=== PATIENT | male | born 1945 | race Caucasian/White ===

== ENCOUNTER → 2017-04-18 | Outpatient (CLI) | payer BC ==
[~2017-04-18] MED LIST: ALLO100T PO; ASPCH81X PO; BNC5 PO; CHOL1CAP57 PO; LEVO50TA6 PO; MULT-506 PO; POTA1TAB97 PO; ZNTT/150 PO; [UNRECOGNIZED DRUG - CODE] OPR
[2017-04-18 13:34] LABS: BASO % 0.7 %; BASO ABS # 0.03 K/uL (0-0.2); COMPLETE YES; HEMATOCRIT 41.3 % (42-52); LYMPH % 41.5 %; LYMPH ABS # 1.68 K/uL (1.2-3.4); MEAN CELL VOLUME 92.6 fL (80-100); MEAN CORPUSCULAR HEMOGLOBIN 31.6 pg (25-34); MEAN CORPUSCULAR HGB CONC 34.1 g/dl (32-36); MEAN PLATELET VOLUME 11.5 fL (7.4-10.4); MONO % 10.9 %; NEUT % 44.9 %; PLATELET COUNT 212 K/uL (130-400); RED BLOOD COUNT 4.46 M/uL (4.7-6.1); WHITE BLOOD COUNT 4.05 K/uL (4.8-10.8)
[2017-04-18 13:57] LABS: ESTIMATED AVERAGE GLUCOSE 105 mg/dl; HA1C FLAG Normal (Normal)
[2017-04-18 14:36] LABS: ALT/SGPT 32 U/L (12-78); AST/SGOT 24 U/L (15-37); BLOOD UREA NITROGEN 18 mg/dl (7-18); BUN/CREATININE RATIO 14.7 (10-20); CALCIUM 9.1 mg/dl (8.5-10.1); CARBON DIOXIDE 25 mmol/L (21-32); CHLORIDE 110 mmol/L (98-107); GLUCOSE 97 mg/dl (70-99); POTASSIUM 4.5 mmol/L (3.5-5.1); SODIUM 143 mmol/L (136-145); URIC ACID 3.8 mg/dl (2.6-7.2)
[2017-04-18 14:45] LABS: ALB/GLOB RATIO 1.2 (0.9-2); ALKALINE PHOSPHATASE 47 U/L (45-117); CHOLESTEROL 187 mg/dl (0-200); CHOLESTEROL/HDL RATIO 5.3; HDL CHOLESTEROL 35 mg/dl; LDL CHOLESTEROL CALCULATED 101 mg/dl; PHOSPHORUS 2.5 mg/dl (2.5-4.9); TRIGLYCERIDES 254 mg/dl (0-150); VERY LOW DENSITY LIPOPROT CALC 51 mg/dl
[2017-04-20 10:05] LABS: C-REACTIVE PROT HIGHSEN 0.7 MG/L
--- NOTE | 2017-04-22 10:35 | CODING QUERY MEDICAL NECESSITY ---
SUPPORTING DIAGNOSIS NEEDED Dr. Dexter, A supporting diagnosis is required for the test/procedure performed on this patient in order for us to be reimbursed by the patient's insurance. Please provide a supporting diagnosis for the following test/procedure listed below next to the test name along with your signature. *If there is no additional diagnosis for this patient that would support the following test/procedure please document that below next to the test/procedure. Test(s)/Procedure(s) that require a supporting diagnosis: * ([id number]) C-REACTIVE PROTEIN DIAGNOSIS: DATE OF SERVICE: 04/18/17 Provider Signature: Date: Thank you Abner Etienne [facility] Information Management Once completed, please kindly fax back to [phone] For questions please call [phone]
== END | disposition home or self-care (01) ==
LOC: C.LABBC 09:38
PROVIDERS: ATTEND Urology
DX: R73.09 Other abnormal glucose (principal); E55.9 Vitamin D deficiency, unspecified; D51.9 Vitamin B12 deficiency anemia, unspecified; R97.20 Elevated prostate specific antigen [PSA]; R53.83 Other fatigue

== ENCOUNTER → 2017-09-06 | Outpatient (CLI) | payer BC ==
[2017-09-06 11:01] LABS: BASO % 0.7 %; BASO ABS # 0.03 K/uL (0-0.2); COMPLETE YES; EOS % 2.1 %; HEMATOCRIT 41.2 % (42-52); LYMPH % 44.4 %; MEAN CELL VOLUME 91.6 fL (80-100); MEAN CORPUSCULAR HEMOGLOBIN 31.6 pg (25-34); MEAN CORPUSCULAR HGB CONC 34.5 g/dl (32-36); MEAN PLATELET VOLUME 11.5 fL (7.4-10.4); MONO % 9.6 %; NEUT % 43.2 %; PLATELET COUNT 224 K/uL (130-400); WHITE BLOOD COUNT 4.28 K/uL (4.8-10.8)
[2017-09-06 11:18] LABS: ESTIMATED AVERAGE GLUCOSE 111 mg/dl; HA1C FLAG Normal (Normal)
[2017-09-06 11:19] LABS: ALT/SGPT 30 U/L (12-78); BLOOD UREA NITROGEN 20 mg/dl (7-18); BUN/CREATININE RATIO 14.1 (10-20); CARBON DIOXIDE 25 mmol/L (21-32); CHLORIDE 109 mmol/L (98-107); CHOLESTEROL 191 mg/dl (0-200); GLUCOSE 101 mg/dl (70-99); POTASSIUM 4.5 mmol/L (3.5-5.1); SODIUM 139 mmol/L (136-145); URIC ACID 5.4 mg/dl (2.6-7.2)
[2017-09-06 11:27] LABS: ALB/GLOB RATIO 1.3 (0.9-2); ALKALINE PHOSPHATASE 44 U/L (45-117); AST/SGOT 27 U/L (15-37); CHOLESTEROL/HDL RATIO 5.3; HDL CHOLESTEROL 36 mg/dl; LDL CHOLESTEROL CALCULATED 105 mg/dl; PHOSPHORUS 2.2 mg/dl (2.5-4.9); TRIGLYCERIDES 249 mg/dl (0-150); VERY LOW DENSITY LIPOPROT CALC 50 mg/dl
== END | disposition home or self-care (01) ==
LOC: C.LABBC 08:06
PROVIDERS: ATTEND Family Medicine
DX: E11.9 Type 2 diabetes mellitus without complications (principal)

== ENCOUNTER → 2018-04-18 | Outpatient (CLI) | payer BC ==
[~2018-04-18] MED LIST changes: +RANI150T85 PO; -ZNTT/150 PO
[2018-04-18 11:09] LABS: BASO % 0.7 %; BASO ABS # 0.03 K/uL (0-0.2); EOS % 1.4 %; EOS ABS # 0.06 K/uL (0-0.5); HEMATOCRIT 41.1 % (42-52); HEMOGLOBIN 14.3 g/dL (14.0-18.0); LYMPH % 38.3 %; LYMPH ABS # 1.59 K/uL (1.2-3.4); MEAN CELL VOLUME 89.5 fL (80-100); MEAN CORPUSCULAR HEMOGLOBIN 31.2 pg (25-34); MEAN CORPUSCULAR HGB CONC 34.8 g/dl (32-36); MEAN PLATELET VOLUME 10.5 fL (7.4-10.4); MONO ABS # 0.33 K/uL (0.11-0.59); NEUT % 51.6 %; NEUT ABS # 2.14 K/uL (1.4-6.5); PLATELET COUNT 209 K/uL (130-400); RED CELL DISTRIBUTION WIDTH CV 12.8 % (11.5-14.5); RED CELL DISTRIBUTION WIDTH SD 41.3 fL (36.4-46.3); WHITE BLOOD COUNT 4.15 K/uL (4.8-10.8)
[2018-04-18 11:41] LABS: ALBUMIN 4.3 gm/dl (3.4-5.0); ALKALINE PHOSPHATASE 44 U/L (45-117); ALT/SGPT 31 U/L (12-78); AST/SGOT 27 U/L (15-37); BLOOD UREA NITROGEN 14 mg/dl (7-18); CALCIUM 9.3 mg/dl (8.5-10.1); CARBON DIOXIDE 27 mmol/L (21-32); CHOLESTEROL 205 mg/dl (0-200); CREATININE 1.34 mg/dl (0.60-1.40); GLUCOSE 102 mg/dl (70-99); LDL CHOLESTEROL CALCULATED 116 mg/dl; POTASSIUM 4.3 mmol/L (3.5-5.1); SODIUM 138 mmol/L (136-145); TOTAL PROTEIN 7.4 gm/dl (6.4-8.2); TRANSFERRIN 296 mg/dl (200-360); URIC ACID 4.5 mg/dl (2.6-7.2)
[2018-04-18 12:52] LABS: HEMOGLOBIN A1C 5.5 % (4.5-5.6)
== END | disposition home or self-care (01) ==
LOC: C.LABBC 07:55
PROVIDERS: ATTEND Family Medicine
DX: E88.81 Metabolic syndrome and other insulin resistance (principal); E55.9 Vitamin D deficiency, unspecified; D51.9 Vitamin B12 deficiency anemia, unspecified; E78.9 Disorder of lipoprotein metabolism, unspecified; R53.83 Other fatigue

== ENCOUNTER 2024-11-07 12:13 | Observation (INO) ==
--- NOTE | 2024-11-07 12:40 | Emergency Department Note ---
Impression & Plan Syncope and collapse ADMIT ED Provider Note HPI: History obtained from patient. The patient is a 78-year-old gentleman with history of recently diagnosed Parkinson disease, PTSD, hypertension, GERD, who presents the emergency department with a chief complaint of a syncopal event. Patient states that he was working out today with his link trainer maintenance worker and he was doing some upper body exercises and rowing, patient states he began to feel lightheaded which lasted for several minutes and then his link trainer maintenance worker assisted him to a bench in the gym. Patient states then he lost consciousness for short period of time and was lowered to the ground. Patient states he awoke with his trainers assisting him and then EMS was called. ROS: - Per HPI Differential Diagnosis: Vasovagal syncope, arrhythmia to include SVT, atrial fibrillation with RVR, ventricular tachycardia, ACS, dehydration/acute kidney injury, amongst other potential pathologies. *Outpatient medications and allergy history reviewed. PE: General: Alert HEENT: Normocephalic, trachea midline Eyes: Extraocular eye movement is intact, no scleral erythema Pulmonary: Clear to auscultation bilaterally, no wheezing Cardio: Regular rate and rhythm GI: Abdomen is soft to palpation : No suprapubic tenderness MSK: No evidence of trauma or malformation of the extremities, no edema Skin: No evidence of rash Neuro: Alert, no focal deficits Psychiatric: Cooperative INDEPENDENT INTERPRETATIONS: senior payroll administrator: (As interpreted by myself): - An order was placed for continuous cardiac monitoring - Patient was noted to be in sinus rhythm with a rate of 58 EKG: (As interpreted by myself): Rate: 57 Rhythm: Sinus bradycardia Intervals: Within normal limits ST changes: No ST elevation Time: 1219 Chest x-ray: (As interpreted by myself): No acute process Interventions provided in ED: -Meclizine, IV fluid bolus Medical Decision Making: IV was established and lab work obtained, patient was placed on ceramics instructor. Lab work shows no leukocytosis, hemoglobin is normal, platelet count is normal, CMP does not show any evidence of any critical findings, creatinine is noted to be slightly above baseline at 1.64. Patient was given IV fluids. Troponin is negative. EKG per my interpretation shows sinus bradycardia without any acute ischemic changes. X-ray imaging of the chest does not show any evidence of any acute disease. Patient did not hit his head, he states he was lowered to the ground by his link trainer maintenance worker. I do not feel that CT imaging of the head is indicated at this time. On my reassessment the patient states that he feels improved from previous but still does feel lightheaded, given this I do feel that he should be admitted for further management. Patient was in agreement to this plan. Case was discussed with the on-call hospitalist, Dr. Obregon, the patient was admitted in stable condition for further management of syncope and lightheadedness. Consultants/Discussions held with other healthcare providers: -Hospitalist, Dr. Obregon Disposition discussion held by myself with: -Patient Diagnosis: 1. Syncope, acute 2. Elevated creatinine, acute 3. Lightheaded sensation, acute Disposition: Admission Adrián Koch DO Emergency Medicine Past Med/Surg History Problem List (Updated 11/07/24 @ 18:21 by Adrián Koch DO) Acute kidney injury Syncope and collapse (Acute) BPH (benign prostatic hyperplasia) Parkinson disease Contact dermatitis Rheumatoid factor positive Acute COVID-19 Abdominal pain Diplopia Parkinsons disease Rhinitis Tremor Mild cognitive impairment of uncertain or unknown etiology Elevated PSA Left hip pain Recent shoulder injury Trochanteric bursitis of left hip Chest wall pain Posttraumatic stress disorder Hyperuricemia Tubular adenoma of colon Kidney stone GERD (gastroesophageal reflux disease) Hypothyroidism Tachycardia post covid Hyperlipidemia Fatigue Long COVID Dyspnea Abnormal CXR Hypertension (Chronic) Medical History Sinusitis History of actinic keratoses Hx of nephrolithotomy with removal of calculi COVID-19 Perforated appendicitis Mild anemia Gangrenous appendicitis Kidney stones Surgical History H/O cataract removal with insertion of prosthetic lens H/O hand surgery TRIGGER FINGER RELEASE ON R HAND History of appendectomy H/O sinus surgery Family History Father Stroke Myocardial infarction Sister Prediabetes Grandfather (Paternal) Myocardial infarction Brother Prostate cancer Denies family history of Ovarian cancer Breast cancer Colorectal cancer Social History Smoking Status: Never smoker Second Hand Exposure: No; Do You Dip or Chew Tobacco: No; Hx Alcohol Use: No Hx Substance Use: No Preferred Language: Persian Communication Ability: Effective Visual Impairment: Diminished Hearing Ability: Use of Hearing Aid Dural Mechanic Required: No Beliefs That Will Affect Care: None marital status: Current Living Situation: Spouse current occupational status: retired How many Children do You have: 2 Other Information That Helps Us Care for You: No Feels Safe at Home: Yes Safety Concerns: Feels Safe At This Time Childhood Exposure to Second-Hand Smoke: Yes Diet: regular caffeine: Yes during the past year weight has: remained stable Dental Care, Regularly: Yes Physical Activity Frequency: Does not Exercise Seatbelt Use: always Sunscreen Use: Yes Do you think of yourself as: straight/heterosexual Assistive Devices: None Allergies Allergies Allergy/AdvReac Type Severity Reaction Status Date / Time rosuvastatin AdvReac Severe Depression Verified 11/07/24 14:37 Home Meds Home Medications Medication Instructions Recorded Confirmed aspirin 81 mg tablet,delayed 81 mg PO DAILY 03/30/22 11/07/24 release (Ecotrin Low Strength) cholecalciferol (vitamin D3) 25 50 mcg PO BID 11/23/22 11/07/24 mcg (1,000 unit) capsule ezetimibe 10 mg tablet 10 mg PO DAILY 03/19/24 11/07/24 coQ10 (ubiquinol) 200 mg capsule 200 mg PO DAILY 11/07/24 11/07/24 Previous Rx's Medication Instructions Recorded olmesartan 5 mg tablet 5 mg PO 3XWK #60 tabs 05/26/23 levothyroxine 50 mcg tablet 50 mcg PO DAILY #90 tabs 05/23/24 famotidine 40 mg tablet 40 mg PO BID #180 tabs 06/19/24 allopurinol 100 mg tablet 100 mg PO BID #180 tabs 06/20/24 potassium citrate 10 mEq (1,080 20 meq (2 x 10 mEq (1,080 mg)) PO 08/31/24 mg) tablet,extended release BID 30 days #120 tabs Results & Data (ED) Vital Signs Vital Signs - 24 hr 11/07/24 12:20 11/07/24 12:21 11/07/24 12:30 Temperature 36.4 C L Temperature Source Oral Pulse Rate 64 68 Pulse Rate from SpO2 Sensor Respiratory Rate 18 17 Blood Pressure 113/66 Blood Pressure Mean 81 Pulse Oximetry 96 96 100 Oxygen Delivery Method Room Air Room Air Sepsis Recent Fever Within 48 Hours No Sepsis New/Unexplained Change in Mental Status No Sepsis Action Taken by Nursing No Action Required 11/07/24 12:32 11/07/24 12:54 11/07/24 13:08 Temperature Temperature Source Pulse Rate 70 73 Pulse Rate from SpO2 Sensor 75 Respiratory Rate 14 Blood Pressure 105/61 Blood Pressure Mean 67 Pulse Oximetry 95 Oxygen Delivery Method Sepsis Recent Fever Within 48 Hours Sepsis New/Unexplained Change in Mental Status Sepsis Action Taken by Nursing 11/07/24 13:08 11/07/24 13:18 11/07/24 13:30 Temperature Temperature Source Pulse Rate 81 Pulse Rate from SpO2 Sensor Respiratory Rate 12 Blood Pressure 105/61 113/68 Blood Pressure Mean 67 75 Pulse Oximetry Oxygen Delivery Method Sepsis Recent Fever Within 48 Hours Sepsis New/Unexplained Change in Mental Status Sepsis Action Taken by Nursing 11/07/24 13:30 11/07/24 13:30 11/07/24 13:57 Temperature Temperature Source Pulse Rate 48 L 71 Pulse Rate from SpO2 Sensor 49 L 67 Respiratory Rate 18 14 Blood Pressure 113/68 Blood Pressure Mean 75 Pulse Oximetry 95 92 Oxygen Delivery Method Sepsis Recent Fever Within 48 Hours Sepsis New/Unexplained Change in Mental Status Sepsis Action Taken by Nursing 11/07/24 14:00 11/07/24 14:03 11/07/24 14:24 Temperature Temperature Source Pulse Rate 56 L 65 Pulse Rate from SpO2 Sensor 56 L 66 Respiratory Rate 15 17 Blood Pressure 119/63 Blood Pressure Mean 93 Pulse Oximetry 95 93 Oxygen Delivery Method Sepsis Recent Fever Within 48 Hours Sepsis New/Unexplained Change in Mental Status Sepsis Action Taken by Nursing 11/07/24 14:30 11/07/24 14:36 Temperature Temperature Source Pulse Rate 67 Pulse Rate from SpO2 Sensor 68 Respiratory Rate 12 Blood Pressure 126/72 Blood Pressure Mean 95 Pulse Oximetry 91 Oxygen Delivery Method Sepsis Recent Fever Within 48 Hours Sepsis New/Unexplained Change in Mental Status Sepsis Action Taken by Nursing Laboratory Data 11/07/24 12:10 11/07/24 12:10 Lab Results 11/07/24 Range/Units 12:10 WBC 5.82 (4.8-10.8) K/ul RBC 4.64 L (4.70-6.10) M/uL Hgb 14.0 (14.0-18.0) g/dl Hct 40.3 L (42.0-52.0) % MCV 86.9 (80.0-100.0) fL MCH 30.2 (25.0-34.0) pg MCHC 34.7 (32.0-36.0) g/dL RDW Std Deviation 39.5 (36.4-46.3) fL RDW Coeff of Sasha 12.5 (11.5-14.5) % Plt Count 270 (130-400) K/uL MPV 10.5 (9.4-12.4) fL Immature Gran % (Auto) 0.3 % Neut % (Auto) 60.1 % Lymph % (Auto) 28.7 % [place] % (Auto) 9.3 % Eos % (Auto) 0.7 % Baso % (Auto) 0.9 % Neut # (Auto) 3.50 (1.40-6.50) K/uL Lymph # (Auto) 1.67 (1.20-3.40) K/uL [place] # (Auto) 0.54 (0.11-0.59) K/uL Eos # (Auto) 0.04 (0.00-0.50) K/uL Baso # (Auto) 0.05 (0.00-0.20) K/uL Immature Gran # (Auto) 0.02 (0.01-0.20) K/uL PT 10.7 (9.0-12.0) Seconds INR 1.0 (0.9-1.1) Sodium 138 (136-145) mmol/L Potassium 4.6 (3.5-5.1) mmol/L Chloride 104 (98-107) mmol/L Carbon Dioxide 22 (21-32) mmol/L Anion Gap 12 H (3-11) BUN 18 (6-23) mg/dl Creatinine 1.64 H (0.6-1.4) mg/dl Est Cr Clr Drug Dosing 37.0 ml/min eGFR 42.55 BUN/Creatinine Ratio 11.0 (10-20) Glucose 129 H (70-99(Fasting)) mg/dl Calcium 9.9 (8.6-10.3) mg/dl Total Bilirubin 0.9 (0.2-1.0) mg/dl AST 19 (13-39) U/L ALT 17 (7-52) U/L Alkaline Phosphatase 46 (34-104) U/L Troponin I High Sens 3.9 (0-20) pg/ml Total Protein 6.8 (6.0-8.3) gm/dl Albumin 4.2 (3.4-5.0) gm/dl Globulin 2.6 (2.5-4.0) gm/dl Albumin/Globulin Ratio 1.6 (0.9-2) Lipase 13 (11-82) U/L Administered Medications Ondansetron HCl (Ondansetron Inj 2 Mg/Ml 2 Ml Vial) 4 mg IV Q6H PRN PRN Reason: Nausea And Vomiting Stop: 12/07/24 15:29 Last Admin: 11/07/24 15:33 Dose: 4 mg Documented By: RAVI Discontinued Medications Sodium Chloride (Nss) 500 mls @ 999 mls/hr IV .Q31M ONE Stop: 11/07/24 13:02 Last Infusion: 11/07/24 16:09 Dose: Infused Documented By: Admin: 11/07/24 13:11 Dose: 999 mls/hr Documented By: RAVI Losartan Potassium (Losartan Potassium 25 Mg Tab) 12.5 mg PO MoWeFr [facility] Stop: 12/07/24 16:29 Last Admin: 11/07/24 17:03 Dose: Not Given Documented By: [facility] [place] Meclizine HCl (Meclizine Hcl 25 Mg Tab) 25 mg PO NOW [facility] Stop: 11/07/24 14:16 Last Admin: 11/07/24 14:47 Dose: 25 mg Documented By: RAVI Ondansetron HCl (Ondansetron Inj 2 Mg/Ml 2 Ml Vial) Confirm Administered Dose 4 mg .ROUTE .STK-MED ONE Stop: 11/07/24 15:25 Last Admin: 11/07/24 15:33 Dose: Not Given Documented By: RAVI Imaging Data Radiologist's Impression: Chest X-Ray 11/07/24 12:31 XR chest 1V portable CLINICAL HISTORY: Chest pain, nonspecific TECHNIQUE: Single frontal radiograph of the chest was obtained. Comparison: Comparison is made to chest radiograph 11/25/2021 FINDINGS: No lines and tubes are seen. The cardiomediastinal silhouette is normal. The lungs are clear. No evidence of pleural effusion or pneumothorax. IMPRESSION: No acute chest disease. ACT 112: Negative or not required by law. Electronically signed by: Jean Claude Orellana M.D. 11/07/2024 1:47 PM Discharge Plan Visit Data Chief Complaint: Vertigo Stated Complaint: DIZZY ED Provider: Adrián Koch Discharge Problem: Syncope and collapse Patient Disposition: Admitted As Inpatient Discharge Instructions Interventions: ED Discharge Assessment Last Done: 11/07/24 15:07
[2024-11-07] MEDS: SODIUM CHLORIDE 0.9% 500 ML IV ONE (13:11)
[2024-11-07 13:15] LABS: Basophils # (auto) 0.05 K/uL (0.00-0.20); Basophils % (auto) 0.9 %; Eosinophils # (auto) 0.04 K/uL (0.00-0.50); Eosinophils % (auto) 0.7 %; Hematocrit (blood only) 40.3 % (42.0-52.0); Immature Granulocytes # (auto) 0.02 K/uL (0.01-0.20); Immature Granulocytes % (auto) 0.3 %; Lymphocytes # (auto) 1.67 K/uL (1.20-3.40); Lymphocytes % (auto) 28.7 %; Mean Corpuscular Hemoglobin 30.2 pg (25.0-34.0); Mean Corpuscular Hgb Conc 34.7 g/dL (32.0-36.0); Mean Corpuscular Volume 86.9 fL (80.0-100.0); Mean Platelet Volume 10.5 fL (9.4-12.4); Monocytes # (auto) 0.54 K/uL (0.11-0.59); Monocytes % (auto) 9.3 %; Neutrophils % (auto) 60.1 %; Platelet Count 270 K/uL (130-400); RDW Coefficient of Variation 12.5 % (11.5-14.5); RDW Standard Deviation 39.5 fL (36.4-46.3); Red Blood Count 4.64 M/uL (4.70-6.10); White Blood Count 5.82 K/ul (4.8-10.8)
[2024-11-07 13:40] LABS: Albumin Globulin Ratio 1.6 (0.9-2); Albumin Level 4.2 gm/dl (3.4-5.0); Bilirubin,Total 0.9 mg/dl (0.2-1.0); Calcium 9.9 mg/dl (8.6-10.3); Globulin 2.6 gm/dl (2.5-4.0); Potassium 4.6 mmol/L (3.5-5.1); Total Protein 6.8 gm/dl (6.0-8.3)
[2024-11-07 13:44] LABS: Troponin I High Sensitivity 3.9 pg/ml (0-20)
[2024-11-07 13:48] LABS: Prothrombin Time 10.7 Seconds (9.0-12.0)
--- NOTE | 2024-11-07 13:48 | XRay Report ---
XR chest 1V portable CLINICAL HISTORY: Chest pain, nonspecific TECHNIQUE: Single frontal radiograph of the chest was obtained. Comparison: Comparison is made to chest radiograph 11/25/2021 FINDINGS: No lines and tubes are seen. The cardiomediastinal silhouette is normal. The lungs are clear. No evid ence of pleural effusion or pneumothorax. IMPRESSION: No acute chest disease. ACT 112: Negative or not required by law. Electronically signed by: Jean Claude Orellana M.D. 11/07/2024 1:47 PM
[2024-11-07] MEDS: MECLIZINE HCL 25 MG TAB PO STA ×2 (14:47→22:47)
--- NOTE | 2024-11-07 15:01 | History & Physical Report ---
Date of Service November 07, 2024 Assessment & Plan (1) Syncope and collapse: Plan: H/o of syncopal event while at the gym, lightheaded then syncope. Symptoms not present prior to, during, or after per patient; witnessed by agency trainer at the gym. Currently experiencing vertigo, onset while in ambulance en route to hospital. Reportedly deals w/ tachycardia but upon arrival, bradycardic. Anticipate 2/2 dehydration combined w/ vigorous exercise at gym - Admit - BP meds - olmesartan 5 mg 3 times per week - HOLD - Olmesartan may have impacted event, however, pt has been on this dose for years so not certain if this was the main culprit - CBC RBC 4.64, H&H 14/40.3; CMP AG 12, creatinine 1.64, glucose 129; troponin 3.9 - EKG Sinus bradycardia, 57bpm, AK 160, QRS 72, QT/QTc 410/399 - CXR no acute chest disease - Having pain w/ palpation C-spine; 2/2 recent fall and episode of ongoing vertigo - CT spine + head -CT cervical spine with degenerative changes, no acute bony injury; head CT no acute intracranial abnormality - Ongoing vertigo - Meclizine + zofran - Mg pending - TSH pending - Orthostatic vitals pending (2) Parkinson disease: Plan: H/o per report; Follows w/ [facility] for such; supposedly due to his exposure to agent orange while in [place]. - 1-on-1 fitness MWF for PD (3) Hypothyroidism: Plan: H/o hypothyroidism - Most recent TSH 10/2023 @ 4.197 - TSH pending - On levothyroxine- continue Plan GERD- famotidine Dispo: Admit Diet: Regular VTE Prophylaxis: Encourage ambulation as tolerated Code: Full Admission and Anticipated Discharge Date Admission Date: 11/07/2024 History of Present Illness Chief Complaint: Syncopal event Primary Care Provider: Jimmy Dexter MD 78-year-old male presenting via EMS from [facility] for episode of dizziness, followed by syncopal episode with associated vertigo and chest tightness. ED course: CBC RBC 4.64, H&H 14/40.3; PT/INR WNL; CMP AG 12, creatinine 1.64, glucose 129; troponin 3.9; lipase 13; CXR no acute chest disease; EKG sinus bradycardia (57 bpm).; Provided with 500 mL NSS, meclizine 25 in ED. 78-year-old male PMHx HTN, Parkinson's disease, hypothyroidism, GERD, and mild cognitive impairment presenting for syncopal episode. States that he participates in 1 on 1 exercises Tuesday, Tuesday, and Tuesday. Was at the gym participating in this regimen, states that he was exercising rather vigorously. Suddenly got lightheaded, and was told to sit down by the agency trainer. Patient states next thing he knew, he woke up on the floor with people looking at him from above. States that he does not believe he got any symptoms prior to the episode other than just feeling lightheaded. Was breathing heavy, but attributes this to exercising and did not per se have any shortness of breath or chest pain. States that he believes he hit his head on the way down, as his agency trainer stated. Having slight pain at the back of his neck. Patient states that he did not have involuntary movements per his agency trainer, and did not have confusion upon regaining consciousness. Believes he was only out for a few moments. States that this happened before approximately 11 years ago with the exact same episode of having lightheadedness while at the gym and then having a syncopal event. Patient states that he has not been drinking a lot of fluid recently, there is a chance that he was rather dehydrated. Takes olmesartan Tuesday, and has been on this regimen for years. Only other concern right now is the patient is having rather severe vertigo, which started while en route to the hospital via the ambulance. Has decreased in severity slightly since stationary, but having recurrence of symptoms when moving his head [id number]. States that the room is spinning, but he is not feeling off balance. Denies chest pain, shortness of breath, palpitations, abdominal pain, N/V/D/C, numbness or tingling, headache, or LUTS. Took all a.m. medications. Please see Dr. Obregon's attestation for adjustments/additions to treatment plan. Allergies Allergy/AdvReac Type Severity Reaction Status Date / Time rosuvastatin AdvReac Severe Depression Verified 11/07/24 14:37 Home Medications Medication Instructions Recorded Confirmed Type aspirin 81 mg tablet,delayed 81 mg PO DAILY 03/30/22 11/07/24 History release (Ecotrin Low Strength) cholecalciferol (vitamin D3) 25 50 mcg PO BID 11/23/22 11/07/24 History mcg (1,000 unit) capsule olmesartan 5 mg tablet 5 mg PO 3XWK #60 tabs 05/26/23 11/07/24 Rx ezetimibe 10 mg tablet 10 mg PO DAILY 03/19/24 11/07/24 History levothyroxine 50 mcg tablet 50 mcg PO DAILY #90 tabs 05/23/24 11/07/24 Rx famotidine 40 mg tablet 40 mg PO BID #180 tabs 06/19/24 11/07/24 Rx allopurinol 100 mg tablet 100 mg PO BID #180 tabs 06/20/24 11/07/24 Rx potassium citrate 10 mEq (1,080 20 meq (2 x 10 mEq (1,080 mg)) PO 08/31/24 11/07/24 Rx mg) tablet,extended release BID 30 days #120 tabs coQ10 (ubiquinol) 200 mg capsule 200 mg PO DAILY 11/07/24 11/07/24 History Past Med/Surg History Problem List (Updated 11/07/24 @ 18:21 by Adrián Koch DO) Acute kidney injury Syncope and collapse (Acute) BPH (benign prostatic hyperplasia) Parkinson disease Contact dermatitis Rheumatoid factor positive Acute COVID-19 Abdominal pain Diplopia Parkinsons disease Rhinitis Tremor Mild cognitive impairment of uncertain or unknown etiology Elevated PSA Left hip pain Recent shoulder injury Trochanteric bursitis of left hip Chest wall pain Posttraumatic stress disorder Hyperuricemia Tubular adenoma of colon Kidney stone GERD (gastroesophageal reflux disease) Hypothyroidism Tachycardia post covid Hyperlipidemia Fatigue Long COVID Dyspnea Abnormal CXR Hypertension (Chronic) Medical History Sinusitis History of actinic keratoses Hx of nephrolithotomy with removal of calculi COVID-19 Perforated appendicitis Mild anemia Gangrenous appendicitis Kidney stones Surgical History H/O cataract removal with insertion of prosthetic lens H/O hand surgery TRIGGER FINGER RELEASE ON R HAND History of appendectomy H/O sinus surgery Family History Father Stroke Myocardial infarction Sister Prediabetes Grandfather (Paternal) Myocardial infarction Brother Prostate cancer Denies family history of Ovarian cancer Breast cancer Colorectal cancer Social History Smoking Status: Never smoker Second Hand Exposure: No; Do You Dip or Chew Tobacco: No; Hx Alcohol Use: No Hx Substance Use: No Preferred Language: Urdu Communication Ability: Effective Visual Impairment: Diminished Hearing Ability: Use of Hearing Aid Grey Inspector Required: No Beliefs That Will Affect Care: None marital status: Current Living Situation: Spouse current occupational status: retired How many Children do You have: 2 Other Information That Helps Us Care for You: No Feels Safe at Home: Yes Safety Concerns: Feels Safe At This Time Childhood Exposure to Second-Hand Smoke: Yes Diet: regular caffeine: Yes during the past year weight has: remained stable Dental Care, Regularly: Yes Physical Activity Frequency: Does not Exercise Seatbelt Use: always Sunscreen Use: Yes Do you think of yourself as: straight/heterosexual Assistive Devices: None Review of Systems Review of Systems: All systems reviewed & are unremarkable except as noted in Subjective Physical Exam Physical Exam: General: No acute distress Skin: Warm and dry, without rashes or lesions Head: Normocephalic, atraumatic Eyes: PERRL, conjunctivae clear, sclera non-icteric; EOM intact, no nystagmus with EOMs ENT: External ear and ear canal without swelling, LIME, wears hearing aids; nose atraumatic; good dentition, tongue normal appearance, appearing slightly dry Neck: Supple, no LAD Cardio: Bradycardic, regular rhythm, no M/G/R, S1 and S2 normal Resp: No respiratory distress, Lungs CTA in all lobes bilaterally, no wheezes, rales, or rhonchi Abdomen: Soft, symmetric, nontender; no masses or hepatosplenomegaly; Bowel sounds normoactive MSK: No deformities, full ROM throughout; pulses palpable and equal; no edema. Neuro: Awake, alert; Muscle strength 5/5 bilaterally in UE/LE; Sensation intact bilaterally; CN intact Psych: Appropriate mood and affect Results & Data Results & Data Vital Signs (Past 12 Hours) Vital Signs Temp Pulse Resp BP Pulse Ox O2 Del Method 11/07/24 14:03 56 L 15 95 11/07/24 14:00 119/63 11/07/24 13:57 71 14 92 11/07/24 13:30 48 L 18 95 11/07/24 13:30 113/68 11/07/24 13:30 113/68 11/07/24 13:18 81 12 11/07/24 13:08 105/61 11/07/24 13:08 105/61 11/07/24 12:54 73 14 95 11/07/24 12:32 70 11/07/24 12:30 68 17 100 11/07/24 12:21 36.4 C L 64 18 113/66 96 Room Air 11/07/24 12:20 96 Room Air Laboratory Results 11/07/24 12:10 WBC 5.82 RBC 4.64 L Hgb 14.0 Hct 40.3 L MCV 86.9 MCH 30.2 MCHC 34.7 RDW Std Deviation 39.5 RDW Coeff of Sasha 12.5 Plt Count 270 MPV 10.5 Immature Gran % (Auto) 0.3 Neut % (Auto) 60.1 Lymph % (Auto) 28.7 [place] % (Auto) 9.3 Eos % (Auto) 0.7 Baso % (Auto) 0.9 Neut # (Auto) 3.50 Lymph # (Auto) 1.67 [place] # (Auto) 0.54 Eos # (Auto) 0.04 Baso # (Auto) 0.05 Immature Gran # (Auto) 0.02 PT 10.7 INR 1.0 Sodium 138 Potassium 4.6 Chloride 104 Carbon Dioxide 22 Anion Gap 12 H BUN 18 Creatinine 1.64 H Est Cr Clr Drug Dosing 37.0 eGFR 42.55 BUN/Creatinine Ratio 11.0 Glucose 129 H Calcium 9.9 Total Bilirubin 0.9 AST 19 ALT 17 Alkaline Phosphatase 46 Troponin I High Sens 3.9 Total Protein 6.8 Albumin 4.2 Globulin 2.6 Albumin/Globulin Ratio 1.6 Lipase 13 Diagnostic Findings Chest X-Ray 11/07/24 12:31 XR chest 1V portable CLINICAL HISTORY: Chest pain, nonspecific TECHNIQUE: Single frontal radiograph of the chest was obtained. Comparison: Comparison is made to chest radiograph 11/25/2021 FINDINGS: No lines and tubes are seen. The cardiomediastinal silhouette is normal. The l ungs are clear. No evidence of pleural effusion or pneumothorax. IMPRESSION: No acute chest disease. ACT 112: Negative or not required by law. Electronically signed by: Jean Claude Orellana M.D. 11/07/2024 1:47 PM Code Status & VTE Plan Code Status Full Supervising Physician Co-Signing Physician Notes I personally saw and examined the patient. I independently reviewed the labs, EKG, imaging, problem list, medication list, past medical history and family history. I verified all torres points and agree with Osman Delgado PA-C with the following exceptions and/or additions: 78 year old male presents to the ER after a syncopal event following exercising at the gym. Think he was working out more than normal and dehydrated. Following this has had intense vertigo that has continued for hours when seen. No prior history of vertigo. O/E HS RRR, no murmurs, Chest CTAB, Abdo SNT, no extremity weakness, nystagmus on movement of eyes, no diplopia, PERRL, no facial droop A/P Syncope - suspect dehydrated in setting of exercise while on olmesartan, will hold olmesartan and given IV fluids overnight New onset vertigo - no Hx BPPV, vertigo or migraine, ?related to concussion but given age will rule out stroke with MRI prior to making this diagnosis PG Care Time/CCT Total # of Minutes Spent Total Time Spent with Patient: Total time spent is greater than 50% in coordination of care (as documented) at patient's floor/unit and/or counseling patient: Coding Level of Care Code 87516 INT INP/OBS CARE 2/55MIN Diagnoses Syncope and collapse R55 Parkinson disease G20.A1 Hypothyroidism E03.9 Time Spent (min) 60
[2024-11-07] MEDS: ONDANSETRON INJ 2 MG/ML 2 ML VIAL IV PRN (15:33)
[2024-11-07] MEDS: ONDANSETRON INJ 2 MG/ML 2 ML VIAL ONE (15:33)
--- NOTE | 2024-11-07 15:58 | CT Scan Report ---
CT cervical spine wo con CLINICAL HISTORY: Syncope, C-spine tenderness TECHNIQUE: Multidetector row helical CT of the cervical spine was performed without administration of intravenous contrast. Coronal and sagittal reformations were obtained. Automated dose lowering techn iques and/or adjustment according to patient size were utilized for this exam. Comparison: None available at the time of this dictation. FINDINGS: No acute fractures or subluxations are identified. Degenerative changes are seen in the visualized sp ine. The alignment is normal. Soft tissues are unremarkable. IMPRESSION: Degenerative changes without evidence of acute bony injury. ACT 112: Negative or not required by law. Electronically signed by: Jean Claude Orellana M.D. 11/07/2024 3:57 PM
--- NOTE | 2024-11-07 16:01 | CT Scan Report ---
CT head/brain wo con CLINICAL HISTORY: 78 years-old Male with Syncope, ongoing vertigo. Acute syncope with head trauma an d vertigo TECHNIQUE: Multiple axial CT images of the head were obtained without contrast. A dose lowering tech nique was utilized adhering to the principles of ALARA. COMPARISON: CT cervical spine of same day, CT sinuses 04/19/2024 FINDINGS: No acute intracranial hemorrhage, midline shift, intracranial mass, hydrocephalus, territorial ischem ia or abnormal extra-axial collection. Involutional changes with chronic microvascular ischemic disea se. The calvarium is intact. Prior bilateral lens repair. The paranasal sinuses, mastoid air cells, and m iddle ear cavities are clear. IMPRESSION: No acute intracranial abnormality. ACT 112: Negative or not required by law. The above report was generated using voice recognition software. It may contain grammatical, syntax o r spelling errors. Electronically signed by: Alexander Huddleston M.D. 11/07/2024 4:00 PM
[2024-11-07] MEDS ORDERED: ONDANSETRON INJ 2 MG/ML 2 ML VIAL IV PRN (16:08)
--- NOTE | 2024-11-07 16:30 | Electrocardiogram Report ---
Test Reason : Blood Pressure : */* mmHG Vent. Rate : 57 BPM Atrial Rate : 57 BPM P-R Int : 160 ms QRS Dur : 72 ms QT Int : 410 ms P-R-T Axes : 41 13 6 degrees QTcB Int : 399 ms Sinus bradycardia Possible Old Anterior infarct Anterior infarct (cited on or before 20-Nov-2021) Abnormal ECG When compared with ECG of 25-Nov-2021 15:48, No significant change Confirmed by Liam Arcos ([id number]) on 11/07/2024 4:29:54 PM Referred By: REFERRED SELF Confirmed By: Liam Arcos
[2024-11-07] MEDS: LOSARTAN POTASSIUM 25 MG TAB PO SCH (17:03)
[2024-11-07] MEDS: allopurinoL 100 MG TAB PO SCH (21:17)
[2024-11-07] MEDS: FAMOTIDINE 40 MG TABLET PO SCH (21:17)
[2024-11-07] MEDS: MECLIZINE HCL 25 MG TAB PO PRN (21:17)
[2024-11-07] MEDS: PLASMA-LYTE A 1,000 ML IV SCH (21:18)
[2024-11-07] MEDS: POTASSIUM CITRATE 10 MEQ TAB PO SCH (21:18)
[2024-11-07] MEDS: ONDANSETRON INJ 2 MG/ML 2 ML VIAL IV STA (22:48)
[2024-11-07] MEDS: MELATONIN 3 MG TAB PO PRN (23:20)
--- NOTE | 2024-11-07 23:21 | Magnetic Resonance Report ---
Exam(s): MRI HEAD Without Contrast EXAM: MR Head Without Intravenous Contrast CLINICAL HISTORY: Reason for exam: new onset vertigo. TECHNIQUE: Magnetic resonance images of the head/brain without intravenous contrast in multiple planes. COMPARISON: Prior head CT from November 07, 2024. FINDINGS: Brain: Minimal nonspecific white matter changes. The flow voids at the base of the brain are intact. No mass. No hemorrhage. No acute infarct. Ventricles: Unremarkable. No ventriculomegaly. Bones/joints: Unremarkable. No acute fracture. Sinuses: Unremarkable as visualized. No acute sinusitis. Mastoid air cells: Unremarkable as visualized. No mastoid effusion. Orbits: Bilateral lens replacements. IMPRESSION: No evidence of acute intracranial pathology. Electronically signed by: Cortney Luna MD 11/07/24 23:21 PM
[2024-11-07 23:51] LABS: Appearance Urine Clear (Clear); Bacteria Urine Automated None Seen (None Seen); Bilirubin Urine Negative (Negative); Blood Urine Negative (Negative); Color Urine Yellow; Epithelial Cell Urine Auto 0-2 /hpf (0-2); Glucose Urine UA Negative (Negative); Ketones Urine 1+ (Negative); Leukocyte Esterase Urine Negative (Negative); Mucus Urine Present (None Prsent); Nitrite Urine Negative (Negative); Protein Urine Trace (Negative); RBC Urine Automated 0-2 /hpf (0-2); Specific Gravity Urine 1.022 (1.000-1.030); Urobilinogen Urine Negative (Negative); WBC Urine Automated 0-5 /hpf (0-5); pH Urine 7.5 (4.5-7.5)
[2024-11-08] MEDS: LEVOTHYROXINE SODIUM 50 MCG TABLET PO SCH (05:58)
[2024-11-08] MEDS: EZETIMIBE 10 MG TAB PO SCH (08:29)
[2024-11-08] MEDS: ASPIRIN 81 MG ECTAB PO SCH (08:29)
[2024-11-08 09:01] LABS: Hematocrit (blood only) 39.9 % (42.0-52.0); Hemoglobin 13.8 g/dl (14.0-18.0); Mean Corpuscular Hemoglobin 30.6 pg (25.0-34.0); Mean Corpuscular Hgb Conc 34.6 g/dL (32.0-36.0); Mean Corpuscular Volume 88.5 fL (80.0-100.0); Mean Platelet Volume 10.1 fL (9.4-12.4); Platelet Count 233 K/uL (130-400); RDW Coefficient of Variation 12.5 % (11.5-14.5); RDW Standard Deviation 40.9 fL (36.4-46.3); Red Blood Count 4.51 M/uL (4.70-6.10); White Blood Count 7.47 K/ul (4.8-10.8)
[2024-11-08 09:07] LABS: Estimated Average Glucose 117 mg/dl; Hemoglobin A1C 5.7 % (4.5-5.6)
[2024-11-08] MEDS: FEXOFENADINE 60 MG TAB PO SCH (09:08)
[2024-11-08 09:20] LABS: BUN Creatinine Ratio 11.7 (10-20); Calcium 9.1 mg/dl (8.6-10.3); Creatinine Clr Calc Pharmacy 49.8 ml/min; Magnesium 2.3 mg/dl (1.7-2.4); Potassium 4.1 mmol/L (3.5-5.1)
[2024-11-08 09:35] LABS: Thyroid Stimulating Hormone 1.237 uIu/ml (0.300-4.500)
[2024-11-08] MEDS: CYANOCOBALAMIN 1000 MCG/ML VIAL IM SCH (11:45)
--- NOTE | 2024-11-08 13:06 | Hospitalist Progress Note ---
Date of Service November 08, 2024 Assessment & Plan (1) Syncope and collapse: (2) Parkinsons disease: (3) Acute kidney injury: (4) Hypothyroidism: (5) Pre-diabetes: Plan 78-year-old male with past medical history of hypothyroidism, Parkinson's disease not on medications, essential hypertension presents to the ED after a witnessed syncopal episode in the gym was working with his epic trainer. #Syncope #Suspected BPPV #Essential hypertension #ZELDA Check orthostatic vital signs: Patient was orthostatic on vital signs this morning Hold olmesartan Renal function has improved with IV fluid hydration and is at his baseline Avoid nephrotoxic agents including NSAIDs MRI of the brain did not show evidence of CVA CT head without any acute abnormalities CT cervical spine with no acute bony injury and showed degenerative changes Continue telemetry monitoring Check 2D echo TSH is 1.237 B12 is 241: Start vitamin B12 supplementation Meclizine as needed PT consult Monitor orthostatic vital signs #Parkinson's disease Patient has his first appointment with neurology at [facility] outpatient tomorrow at 10 AM #Hypothyroidism TSH is 1.237 Continue levothyroxine 50 mcg p.o. daily Outpatient follow with PCP CODE STATUS: Full code DVT prophylaxis: Bilateral SCDs, start heparin 5000 units subcutaneous twice daily Discharge planning likely tomorrow based on PT recommendations and echo report Care plan discussed with patient, nursing staff and updated at bedside Admission and Anticipated Discharge Date Admission Date: November 07, 2024 Subjective Patient seen and examined H&P reviewed Labs reviewed Radiology reviewed at bedside Patient states dizziness has improved although still occasionally feels dizzy with head movements Concerned about ambulation, using a walker, open to meeting with physical therapy He has his first neurologist appointment with [facility] neurology tomorrow morning at 10 AM Social history: Lives at home with his . 11 of ADLs. Drives, denies tobacco use and alcohol use Physical Exam Physical Exam: General: No acute distress Psych: Awake and alert HEENT: Anicteric sclera, moist oral mucosa, no nystagmus noted CVS: Regular rate and rhythm Lungs: Bilateral air entry, no wheezing noted Abdomen: Soft, nontender, no rebound, no guarding Ext: No lower extremity edema, no calf tenderness Neuro: No focal motor deficits noted Results & Data Results & Data Vital Signs (Past 12 Hours) Vital Signs Temp Pulse Pulse Resp BP BP Pulse Ox 11/08/24 11:33 36.6 C 77 20 158/73 H 95 11/08/24 07:44 36.5 C 74 18 153/76 H 95 11/08/24 07:14 74 11/08/24 03:04 36.6 C 65 16 125/72 94 O2 Del Method 11/08/24 11:33 Room Air 11/08/24 07:44 Room Air 11/08/24 07:14 11/08/24 03:04 Room Air Laboratory Results Laboratory Results - last 24 hr 11/07/24 11/07/24 11/08/24 12:10 23:25 08:49 WBC 5.82 7.47 RBC 4.64 L 4.51 L Hgb 14.0 13.8 L Hct 40.3 L 39.9 L MCV 86.9 88.5 MCH 30.2 30.6 MCHC 34.7 34.6 RDW Std Deviation 39.5 40.9 RDW Coeff of Sasha 12.5 12.5 Plt Count 270 233 MPV 10.5 10.1 Immature Gran % (Auto) 0.3 Neut % (Auto) 60.1 Lymph % (Auto) 28.7 [place] % (Auto) 9.3 Eos % (Auto) 0.7 Baso % (Auto) 0.9 Neut # (Auto) 3.50 Lymph # (Auto) 1.67 [place] # (Auto) 0.54 Eos # (Auto) 0.04 Baso # (Auto) 0.05 Immature Gran # (Auto) 0.02 PT 10.7 INR 1.0 Sodium 138 140 Potassium 4.6 4.1 Chloride 104 106 Carbon Dioxide 22 28 Anion Gap 12 H 6 BUN 18 14 Creatinine 1.64 H 1.20 D Est Cr Clr Drug Dosing 37.0 49.8 eGFR 42.55 61.90 BUN/Creatinine Ratio 11.0 11.7 Glucose 129 H 122 H Estimat Average Glucose 117 Hemoglobin A1c 5.7 H Calcium 9.9 9.1 Magnesium 2.3 Total Bilirubin 0.9 AST 19 ALT 17 Alkaline Phosphatase 46 Troponin I High Sens 3.9 Total Protein 6.8 Albumin 4.2 Globulin 2.6 Albumin/Globulin Ratio 1.6 Lipase 13 Vitamin B12 241 TSH 1.237 Urine Color Yellow Urine Appearance Clear Urine pH 7.5 Ur Specific [place] 1.022 Urine Protein Trace H Urine Glucose (UA) Negative Urine Ketones 1+ H Urine Blood Negative Urine Nitrite Negative Urine Bilirubin Negative Urine Urobilinogen Negative Ur Leukocyte Esterase Negative Urine WBC (Auto) 0-5 Urine RBC (Auto) 0-2 U Hyaline Cast (Auto) 11-20 H U Epithel Cells (Auto) 0-2 Urine Bacteria (Auto) None Seen Urine Mucus Present A Diagnostic Findings Chest X-Ray 11/07/24 12:31 XR chest 1V portable CLINICAL HISTORY: Chest pain, nonspecific TECHNIQUE: Single frontal radiograph of the chest was obtained. Comparison: Comparison is made to chest radiograph 11/25/2021 FINDINGS: No lines and tubes are seen. The cardiomediastinal silhouette is normal. The lungs are clear. No evidence of pleural effusion or pneumothorax. IMPRESSION: No acute chest disease. ACT 112: Negative or not required by law. Electronically signed by: Jean Claude Orellana M.D. 11/07/2024 1:[address] 11/07/24 15:03 CT cervical spine wo con CLINICAL HISTORY: Syncope, C-spine tenderness TECHNIQUE: Multidetector row helical CT of the cervical spine was performed without administration of intravenous contrast. Coronal and sagittal reformations were obtained. Automated dose lowering techniques and/or adjustment according to patient size were utilized for this exam. Comparison: None available at the time of this dictation. FINDINGS: No acute fractures or subluxations are identified. Degenerative changes are seen in the visualized spine. The alignment is normal. Soft tissues are unremarkable. IMPRESSION: Degenerative changes without evidence of acute bony injury. ACT 112: Negative or not required by law. Electronically signed by: Jean Claude Orellana M.D. 11/07/2024 3:[address] 11/07/24 15:03 CT head/brain wo con CLINICAL HISTORY: 78 years-old Male with Syncope, ongoing vertigo. Acute syncope with head trauma and vertigo TECHNIQUE: Multiple axial CT images of the head were obtained without contrast. A dose lowering technique was utilized adhering to the principles of ALARA. COMPARISON: CT cervical spine of same day, CT sinuses 04/19/2024 FINDINGS: No acute intracranial hemorrhage, midline shift, intracranial mass, hydrocephalus, territorial ischemia or abnormal extra-axial collection. Involutional changes with chronic microvascular ischemic disease. The calvarium is intact. Prior bilateral lens repair. The paranasal sinuses, mastoid air cells, and middle ear cavities are clear. IMPRESSION: No acute intracranial abnormality. ACT 112: Negative or not required by law. The above report was generated using voice recognition software. It may contain grammatical, syntax or spelling errors. Electronically signed by: Alexander Huddleston M.D. 11/07/2024 4:00 PM Brain MRI 11/07/24 20:22 Exam(s): MRI HEAD Without Contrast EXAM: MR Head Without Intravenous Contrast CLINICAL HISTORY: Reason for exam: new onset vertigo. TECHNIQUE: Magnetic resonance images of the head/brain without intravenous contrast in multiple planes. COMPARISON: Prior head CT from November 07, 2024. FINDINGS: Brain: Minimal nonspecific white matter changes. The flow voids at the base of the brain are intact. No mass. No hemorrhage. No acute infarct. Ventricles: Unremarkable. No ventriculomegaly. Bones/joints: Unremarkable. No acute fracture. Sinuses: Unremarkable as visualized. No acute sinusitis. Mastoid air cells: Unremarkable as visualized. No mastoid effusion. Orbits: Bilateral lens replacements. IMPRESSION: No evidence of acute intracranial pathology. Electronically signed by: Cortney Luna MD 11/07/24 23:21 PM PG Care Time/CCT Total # of Minutes Spent Total Time Spent with Patient: Total time spent is greater than 50% in coordination of care (as documented) at patient's floor/unit and/or counseling patient: Coding Level of Care Code 77455 SUB INP/OBS CARE 3/50MIN Diagnoses Syncope and collapse R55 Parkinsons disease G20.A1 Acute kidney injury N17.9 Hypothyroidism E03.9 Pre-diabetes R73.03
--- NOTE | 2024-11-08 15:18 | XCELERA ---
[id number] \\[id number]
[2024-11-09 02:46] VITALS: O2SAT 95
[2024-11-09 07:54] VITALS: RESP 18; TEMP 98.4
[2024-11-09] MEDS: CYANOCOBALAMIN (B-12) 500 MCG TABLET PO SCH (08:34)
[2024-11-09 08:42] VITALS: BP 110/63; PULSE 52
--- NOTE | 2024-11-09 08:58 | Discharge Summary ---
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 #Syncope #Suspected BPPV #Essential hypertension #ZELAD Patient was found to be orthostatic on admission and subsequent vital signs Olmesartan has been held, BP is improved with improvement in his dizziness Renal function has improved with IV fluid hydration and is at his baseline Avoid nephrotoxic agents including NSAIDs MRI of the brain did not show evidence of CVA CT head without any acute abnormalities CT cervical spine with no acute bony injury and showed degenerative changes Continue telemetry monitoring Echo showed EF of 55 to 60%, the left ventricular wall motion is normal, there is normal left ventricular wall thickness, the right ventricle is normal in size and function, there is mild mitral regurgitation, left atrium is moderately dilated TSH is 1.237 B12 is 241: Continue vitamin B12 supplementation Meclizine as needed PT saw the patient and cleared him for discharge with recommendations for outpatient PT Spoke to the patient and his : They will see the PCP for referral to vestibular PT as outpatient through PCP #Parkinson's disease Patient has his first appointment with neurology at [facility] outpatient today at 10 AM #Hypothyroidism TSH is 1.237 Continue levothyroxine 50 mcg p.o. daily Outpatient follow with PCP #PreDiabetes A1c is 5.7 Lifestyle counseling regarding diet, exercise and weight loss provided Outpatient follow-up with PCP CODE STATUS: Full code Patient seen and examined. He is hemodynamically stable. He is ambulating with significant improvement in his dizziness and lightheadedness. I have gone over the discharge care plan with the patient and his in great detail including discharge medications, follow-up and answered all their questions. This discharge took greater than 30 minutes to coordinate Admission HPI Per Admitting Provider 78-year-old male presenting via EMS from [facility] for episode of dizziness, followed by syncopal episode with associated vertigo and chest tightness. ED course: CBC RBC 4.64, H&H 14/40.3; PT/INR WNL; CMP AG 12, creatinine 1.64, glucose 129; troponin 3.9; lipase 13; CXR no acute chest disease; EKG sinus bradycardia (57 bpm).; Provided with 500 mL NSS, meclizine 25 in ED. 78-year-old male PMHx HTN, Parkinson's disease, hypothyroidism, GERD, and mild cognitive impairment presenting for syncopal episode. States that he participates in 1 on 1 exercises Tuesday, Tuesday, and Tuesday. Was at the gym participating in this regimen, states that he was exercising rather vigorously. Suddenly got lightheaded, and was told to sit down by the strainer mill operator. Patient states next thing he knew, he woke up on the floor with people looking at him from above. States that he does not believe he got any symptoms prior to the episode other than just feeling lightheaded. Was breathing heavy, but attributes this to exercising and did not per se have any shortness of breath or chest pain. States that he believes he hit his head on the way down, as his strainer mill operator stated. Having slight pain at the back of his neck. Patient states that he did not have involuntary movements per his strainer mill operator, and did not have confusion upon regaining consciousness. Believes he was only out for a few moments. States that this happened before approximately 11 years ago with the exact same episode of having lightheadedness while at the gym and then having a syncopal event. Patient states that he has not been drinking a lot of fluid recently, there is a chance that he was rather dehydrated. Takes olmesartan Tuesday, and has been on this regimen for years. Only other concern right now is the patient is having rather severe vertigo, which started while en route to the hospital via the ambulance. Has decreased in severity slightly since stationary, but having recurrence of symptoms when moving his head [id number]. States that the room is spinning, but he is not feeling off balance. Denies chest pain, shortness of breath, palpitations, abdominal pain, N/V/D/C, numbness or tingling, headache, or LUTS. Took all a.m. medications. Discharge Exam General: No acute distress Psych: Awake and alert HEENT: Anicteric sclera, moist oral mucosa, no nystagmus noted CVS: Regular rate and rhythm Lungs: Bilateral air entry, no wheezing noted Abdomen: Soft, nontender, no rebound, no guarding Ext: No lower extremity edema, no calf tenderness Neuro: No focal motor deficits noted Discharge Plan Discharge Items Patient Disposition: Home - Self-Care Reason For Visit: SYNCOPAL EVENT, VERTIGO Discharge Diagnosis: #Syncope #BPPV #Essential hypertension #Parkinson's disease #Hypothyroidism #Prediabetes Activity: As commented below Activity Comment: As tolerated with assistance from cane Driving/Machine Use: No driving until cleared by your PCP or neurologist Non-emergency contact: Primary Care Provider Call non-emergency contact if: you have any medication questions, your symptoms worsen and you have a fever Follow-up/Referrals: Darrius Sheets MD [Physician] - Jimmy Dexter MD [Primary Care Provider] - 11/16/24 9:30 am Diet: Heart Healthy and Other - See Diet Comment Diet Comment: Avoid high sugar content food, sodas Addtl Attending Provider Instructions: DISCHARGE INSTRUCTION TO PATIENT/FAMILY: Follow-up with your primary care provider within 1 week regarding: Posthospital discharge, medication review, medication refills and follow-up on all your medical problems, prediabetes, blood pressure monitoring Please take all your discharge medications, discharge information and discharge instructions to all your doctors appointments. Avoid all NSAIDs including ibuprofen, Motrin, Advil, Aleve, naproxen, meloxicam, Toradol, diclofenac Please follow-up with your PCP for monitoring of your orthostatic blood pressure: Lying, sitting and standing Please follow-up with your PCP for referral to outpatient vestibular physical therapy Follow-up with your outpatient program developer Dr. Sheets in 1 to 2 weeks time Follow-up with your outpatient neurologist: You have an appointment on 11/09/2024 at 10 AM Labs through PCP in 1 week: CBC, CMP, MG, VITAMIN D Pending Studies at Discharge: No Stand-Alone Forms: My Atticous, Smoking Cessation Medications and DC Order Prescriptions: New cyanocobalamin (vitamin B-12) 500 mcg Tablet 500 mcg PO QAM Qty: 30 0RF Rx Instructions: AVAILABLE OVER THE COUNTER meclizine 25 mg Tablet 12.5 mg PO Q8H PRN (Reason: dizziness) Qty: 15 0RF Continued levothyroxine 50 mcg tablet 50 mcg PO DAILY Qty: 90 3RF allopurinol 100 mg tablet 100 mg PO BID Qty: 180 3RF potassium citrate 10 mEq (1,080 mg) tablet extended release 20 meq PO BID 30 Days Qty: 120 3RF cholecalciferol (vitamin D3) 25 mcg (1,000 unit) capsule 50 mcg PO BID aspirin [Ecotrin Low Strength] 81 mg tablet,delayed release (DR/EC) 81 mg PO DAILY famotidine 40 mg tablet 40 mg PO BID Qty: 180 3RF ezetimibe 10 mg tablet 10 mg PO DAILY coQ10 (ubiquinol) 200 mg Capsule 200 mg PO DAILY Held olmesartan 5 mg tablet 5 mg PO 3XWK Qty: 60 3RF Hold Instructions: Resume on 11/20/24. FOLLOW UP WITH YOUR PCP FOR REPEAT BP CHECK (ORTHOSTATIC: SITTING AND STANDING BP) TO REVIEW NEED TO RESUME BP MEDICATIONS Rx Instructions: TAKES MON, WED, & FRI. Discharge Orders: Discharge Order (Routine); Ordered 11/09/24 Ordered By: William Ceja Admission Data Admit Date/Time: 11/07/24 14:45 Attending Provider: William Ceja Admit Provider: Billy Obregon Primary Care Provider: Jimmy Dexter Other Providers: Billy Obregon Other Interventions: Discharge Summary Assessment (RN) Last Done: 11/09/24 08:41 Hospital Stay Data Consultations 11/07/24 14:14 ED Decision to Admit Stat Diagnostic Imagining Performed 11/07/24 15:03 CT cervical spine wo con Stat CT head/brain wo con Stat 11/07/24 20:22 MRI Brain [MR brain wo con] Stat Chest X-Ray 11/07/24 12:31 XR chest 1V portable CLINICAL HISTORY: Chest pain, nonspecific TECHNIQUE: Single frontal radiograph of the chest was obtained. Comparison: Comparison is made to chest radiograph 11/25/2021 FINDINGS: No lines and tubes are seen. The cardiomediastinal silhouette is normal. The lungs are clear. No evidence of pleural effusion or pneumothorax. IMPRESSION: No acute chest disease. ACT 112: Negative or not required by law. Electronically signed by: Jean Claude Orellana M.D. 11/07/2024 1:[address] 11/07/24 15:03 CT cervical spine wo con CLINICAL HISTORY: Syncope, C-spine tenderness TECHNIQUE: Multidetector row helical CT of the cervical spine was performed without administration of intravenous contrast. Coronal and sagittal reformations were obtained. Automated dose lowering techniques and/or adjustment according to patient size were utilized for this exam. Comparison: None available at the time of this dictation. FINDINGS: No acute fractures or subluxations are identified. Degenerative changes are seen in the visualized spine. The alignment is normal. Soft tissues are unremarkable. IMPRESSION: Degenerative changes without evidence of acute bony injury. ACT 112: Negative or not required by law. Electronically signed by: Jean Claude Orellana M.D. 11/07/2024 3:[address] 11/07/24 15:03 CT head/brain wo con CLINICAL HISTORY: 78 years-old Male with Syncope, ongoing vertigo. Acute syncope with head trauma and vertigo TECHNIQUE: Multiple axial CT images of the head were obtained without contrast. A dose lowering technique was utilized adhering to the principles of ALARA. COMPARISON: CT cervical spine of same day, CT sinuses 04/19/2024 FINDINGS: No acute intracranial hemorrhage, midline shift, intracranial mass, hydrocephalus, territorial ischemia or abnormal extra-axial collection. Involutional changes with chronic microvascular ischemic disease. The calvarium is intact. Prior bilateral lens repair. The paranasal sinuses, mastoid air cells, and middle ear cavities are clear. IMPRESSION: No acute intracranial abnormality. ACT 112: Negative or not required by law. The above report was generated using voice recognition software. It may contain grammatical, syntax or spelling errors. Electronically signed by: Alexander Huddleston M.D. 11/07/2024 4:00 PM Brain MRI 11/07/24 20:22 Exam(s): MRI HEAD Without Contrast EXAM: MR Head Without Intravenous Contrast CLINICAL HISTORY: Reason for exam: new onset vertigo. TECHNIQUE: Magnetic resonance images of the head/brain without intravenous contrast in multiple planes. COMPARISON: Prior head CT from November 07, 2024. FINDINGS: Brain: Minimal nonspecific white matter changes. The flow voids at the base of the brain are intact. No mass. No hemorrhage. No acute infarct. Ventricles: Unremarkable. No ventriculomegaly. Bones/joints: Unremarkable. No acute fracture. Sinuses: Unremarkable as visualized. No acute sinusitis. Mastoid air cells: Unremarkable as visualized. No mastoid effusion. Orbits: Bilateral lens replacements. IMPRESSION: No evidence of acute intracranial pathology. Electronically signed by: Cortney Luna MD 11/07/24 23:21 PM Laboratory Results - last 48 hr 11/07/24 11/07/24 11/08/24 12:10 23:25 08:49 WBC 5.82 7.47 RBC 4.64 L 4.51 L Hgb 14.0 13.8 L Hct 40.3 L 39.9 L MCV 86.9 88.5 MCH 30.2 30.6 MCHC 34.7 34.6 RDW Std Deviation 39.5 40.9 RDW Coeff of Sasha 12.5 12.5 Plt Count 270 233 MPV 10.5 10.1 Immature Gran % (Auto) 0.3 Neut % (Auto) 60.1 Lymph % (Auto) 28.7 Morton % (Auto) 9.3 Eos % (Auto) 0.7 Baso % (Auto) 0.9 Neut # (Auto) 3.50 Lymph # (Auto) 1.67 Morton # (Auto) 0.54 Eos # (Auto) 0.04 Baso # (Auto) 0.05 Immature Gran # (Auto) 0.02 PT 10.7 INR 1.0 Sodium 138 140 Potassium 4.6 4.1 Chloride 104 106 Carbon Dioxide 22 28 Anion Gap 12 H 6 BUN 18 14 Creatinine 1.64 H 1.20 D Est Cr Clr Drug Dosing 37.0 49.8 eGFR 42.55 61.90 BUN/Creatinine Ratio 11.0 11.7 Glucose 129 H 122 H Estimat Average Glucose 117 Hemoglobin A1c 5.7 H Calcium 9.9 9.1 Magnesium 2.3 Total Bilirubin 0.9 AST 19 ALT 17 Alkaline Phosphatase 46 Troponin I High Sens 3.9 Total Protein 6.8 Albumin 4.2 Globulin 2.6 Albumin/Globulin Ratio 1.6 Lipase 13 Vitamin B12 241 TSH 1.237 Urine Color Yellow Urine Appearance Clear Urine pH 7.5 Ur Specific [place] 1.022 Urine Protein Trace H Urine Glucose (UA) Negative Urine Ketones 1+ H Urine Blood Negative Urine Nitrite Negative Urine Bilirubin Negative Urine Urobilinogen Negative Ur Leukocyte Esterase Negative Urine WBC (Auto) 0-5 Urine RBC (Auto) 0-2 U Hyaline Cast (Auto) 11-20 H U Epithel Cells (Auto) 0-2 Urine Bacteria (Auto) None Seen Urine Mucus Present A Pending Results Patient Have Any Pending Studies at Discharge: No Discharge Instructions Given to Patient (Per Discharging Provider) DISCHARGE INSTRUCTION TO PATIENT/FAMILY: Follow-up with your primary care provider within 1 week regarding: Posthospital discharge, medication review, medication refills and follow-up on all your medical problems, prediabetes, blood pressure monitoring Please take all your discharge medications, discharge information and discharge instructions to all your doctors appointments. Avoid all NSAIDs including ibuprofen, Motrin, Advil, Aleve, naproxen, meloxicam, Toradol, diclofenac Please follow-up with your PCP for monitoring of your orthostatic blood pressure: Lying, sitting and standing Please follow-up with your PCP for referral to outpatient vestibular physical t herapy Follow-up with your outpatient program developer Dr. Sheets in 1 to 2 weeks time Follow-up with your outpatient neurologist: You have an appointment on 11/09/2024 at 10 AM Labs through PCP in 1 week: CBC, CMP, MG, VITAMIN D Total Time Total Time Spent Total Time Spent (In Minutes): 36 minutes Coding Level of Care Code 02798 INP/OBS DISCH >30 MIN Diagnoses Syncope and collapse R55 Parkinsons disease G20.A1 Acute kidney injury N17.9 Hypothyroidism E03.9 Pre-diabetes R73.03
[2024-11-09] MEDS ORDERED: VITAMIN B COMPLEX TAB PO SCH (09:00)
== END 2024-11-09 09:25 | disposition home or self-care (01) ==
LOC: ED 12:13 → 2N 12:13 → SUATTDRO 14:45 → 2N 15:07